=== PATIENT | female | born 1985 | race Caucasian/White ===

== ENCOUNTER 2019-02-06 06:14 | Inpatient (IN) | payer OTHER ==
[~2019-02-06] VITALS: Ht 157.5 cm; Wt 63.0 kg
[2019-02-06 07:19] LABS: APPEARANCE,URINE Cloudy (CLEAR); BILIRUBIN,URINE Negative (NEGATIVE); COLOR,URINE Yellow (YELLOW); GLUCOSE, URINE (UA) Negative (NEGATIVE); KETONES,URINE Negative (NEGATIVE); LEUKOCYTE ESTERASE ,URINE Trace (NEGATIVE); NITRATE,URINE Negative (NEGATIVE); OCCULT BLOOD,URINE Negative (NEGATIVE); PROTEIN,URINE Negative (NEGATIVE); UROBILINOGEN,URINE 0.2 mg/dL (0.2-1.0)
[2019-02-06 07:22] VITALS: BP 112/68
[2019-02-06] MEDS ORDERED: PREN1TAB80 PO (07:22)
[2019-02-06] MEDS: LACTATED RINGERS 1000ML 1,000 ML IV PRN ×2 (07:36→16:21)
[2019-02-06 07:48] LABS: HEMATOCRIT 34.9 % (36-48); MEAN CORPUSCULAR HEMOGLOBIN 30.9 pg (27.0-33.0); MEAN CORPUSCULAR HGB CONC 33.9 g/dL (32.0-36.0); MEAN CORPUSCULAR VOLUME 91.1 fL (79-99); PLATELET COUNT (AUTO) 156 K/uL (130-400); RED BLOOD CELL COUNT(AUTO) 3.83 MIL/uL (4.00-5.50); RED CELL DISTRIBUTION WIDTH 13.8 % (11.0-15.5); WHITE BLOOD COUNT (AUTO) 5.7 K/uL (4.8-10.8)
[2019-02-06 07:48] LABS: BACTERIA,URINE Rare /HPF (None Seen); SQUAMOUS EPITHELIAL CELL,UR Few /HPF (0-2); WBC,URINE 0-1 /HPF (0-1)
[2019-02-06] MEDS: DINOPROSTONE 10 MG VAGINAL SUPP VG SCH (08:15)
[2019-02-06] MEDS ORDERED: ROPIVACAINE 0.2% 100ML VIAL 100 ML EP SCH (13:45)
[2019-02-06] MEDS ORDERED: LACTATED RINGERS 500 ML 500 ML IV PRN (13:45)
[2019-02-06] MEDS ORDERED: MEPERIDINE-PF 50 MG/ML SYG IVP PRN (13:45)
[2019-02-06] MEDS ORDERED: NALOXONE HCL 0.4 MG/1 ML ML IV PRN (13:45)
[2019-02-06] MEDS ORDERED: PROMETHAZINE HCL 25 MG/ML 1ML AMPULE IM PRN (13:45)
[2019-02-06] MEDS ORDERED: EPHEDRINE SULFATE 50 MG/ML AMPULE IVP PRN (13:45)
[2019-02-06] MEDS: LIDOCAINE 2%-EPI 1:200,000 20 ML VIAL IJ SCH (19:44)
[2019-02-06] MEDS ORDERED: OXYTOCIN-LR 20 UNITS/1000 ML 1,000 ML IV ONE (20:10)
[2019-02-06] MEDS: OXYTOCIN-LR 20 UNITS/1000 ML 1,000 ML IV SCH (21:45)
[2019-02-06] MEDS ORDERED: ACETAMINOPHEN 325 MG TAB PO PRN (22:15)
[2019-02-06] MEDS ORDERED: MEASLES/MUMPS/RUBELLA VACCINE, LIVE 0.5 ML/VIAL SQ PRN (22:15)
[2019-02-06] MEDS ORDERED: LANOLIN 30GM OINTMENT TP PRN (22:15)
[2019-02-06] MEDS ORDERED: DIPH,PERTUSS(ACELL),TET VAC/PF 0.5 ML VIAL IM PRN (22:15)
[2019-02-06] MEDS ORDERED: ACETAMINOPHEN-CODEINE 300/30MG TAB PO PRN (22:15)
[2019-02-06] MEDS ORDERED: BENZOCAINE/LANOLIN/ALOE VERA 60 ML AEROSOL TP PRN (22:15)
[2019-02-06] MEDS ORDERED: WITCH HAZEL 1 PAD TP PRN (22:15)
--- NOTE | 2019-02-07 00:15 | NUR ---
Explaining will continue to observe in L&D due to numbness to right leg; pt voices understanding & agrees to plan.
--- NOTE | 2019-02-07 01:05 | NUR ---
Pt continues with numbness to right leg; able to move left well, and right foot & ankle, states "i am starting to feel a bit more"; Explaining will continue to observe before transferring to room, pt voices understanding & agrees to plan. Addendum: 02/07/19 at 0107 by SHIELA NEAL RN RN Amended: Links added.
[2019-02-07] MEDS: OXYTOCIN-LR 20 UNITS/1000 ML 1,000 ML IV SCH (01:45)
[2019-02-07 02:15] VITALS: BP 116/72
[2019-02-07] MEDS: IBUPROFEN 600 MG TABLET PO PRN ×3 (03:13→16:34)
[2019-02-07 07:11] LABS: BASOPHILS % (AUTO) 0.4 % (0.0-5.0); HEMATOCRIT 35.1 % (36-48); LYMPHOCYTES % (AUTO) 17.6 % (21.0-51.0); MEAN CORPUSCULAR HGB CONC 34.1 g/dL (32.0-36.0); MEAN CORPUSCULAR VOLUME 90.9 fL (79-99); MONOCYTES % (AUTO) 6.3 % (3.0-13.0); NEUTROPHILS % (AUTO) 74.7 % (40.0-77.0); PLATELET COUNT (AUTO) 126 K/uL (130-400); RED BLOOD CELL COUNT(AUTO) 3.86 MIL/uL (4.00-5.50); RED CELL DISTRIBUTION WIDTH 13.3 % (11.0-15.5); WHITE BLOOD COUNT (AUTO) 9.8 K/uL (4.8-10.8)
[2019-02-07] MEDS: DINOPROSTONE 10 MG VAGINAL SUPP VG SCH (07:25)
[2019-02-07 07:28] VITALS: BP 113/69
[2019-02-07 07:45] LABS: HEPATITIS Bs ANTIGEN SCREEN P Negative (Negative)
[2019-02-07] MEDS: DOCUSATE SODIUM 100 MG CAP PO SCH ×2 (08:46→20:55)
[2019-02-07 11:49] VITALS: BP 96/54
[2019-02-07] MEDS: LIDOCAINE 2%-EPI 1:200,000 20 ML VIAL IJ SCH (13:45)
[2019-02-07 16:30] VITALS: BP 98/62
--- NOTE | 2019-02-07 19:12 | NUR ---
INSTRUCTIONS DISCHARGE INSTRUCTIONS AND PRESCRIPTION PROVIDED TO PT; READ ALL INSTRUCTIONS TO PATIENT, ANSWERED ALL QUESTIONS AND CONCERNS; PT VERBALIZED AND SIGNED UNDERSTANDING
[2019-02-07 19:45] VITALS: BP 99/60
--- NOTE | 2019-02-07 22:00 | NUR ---
STATUS, PATIENT WAS GIVEN DISCHARGE INSTRUCTIONS FOR BY ZULEMA SANCHES AT THIS TIME Addendum: 02/07/19 at 2238 by MITCHEL SERRANO LVN Amended: Links added.
--- NOTE | 2019-02-07 22:00 | NUR ---
DISCHARGE DISCHARGED VIA W/C WITH IN CAR SEAT, DRIZZLING WEATHER AND PARENTS WANTED BABY IN CAR SEAT/ TAKEN TO CAR BY CIARA BRASWELL Addendum: 02/08/19 at 0011 by MITCHEL SERRANO LVN Amended: Links added.
== END 2019-02-07 22:50 | disposition home or self-care (01) | DRG 807 ==
LOC: EDSTATUS 06:14 → LDH 06:15 → WSH 02-07 02:15
PROVIDERS: ADMIT Obstetrics & Gynecology; ATTEND Obstetrics & Gynecology
PROC: 10E0XZZ Delivery of Products of Conception, External Approach (ICD-10-PCS; principal; 2019-02-06)
PROC: 0KQM0ZZ Repair Perineum Muscle, Open Approach (ICD-10-PCS; 2019-02-06)
PROC: 3E0R3BZ Introduction of Anesthetic Agent into Spinal Canal, Percutaneous Approach (ICD-10-PCS; 2019-02-06)
PROC: 00HU33Z Insertion of Infusion Device into Spinal Canal, Percutaneous Approach (ICD-10-PCS; 2019-02-06)
PROC: 3E0234Z Introduction of Serum, Toxoid and Vaccine into Muscle, Percutaneous Approach (ICD-10-PCS; 2019-02-06)
PROC: 3E0134Z Introduction of Serum, Toxoid and Vaccine into Subcutaneous Tissue, Percutaneous Approach (ICD-10-PCS; 2019-02-06)
DX: O70.1 Second degree perineal laceration during delivery (principal); Z37.0 Single live birth; Z3A.39 39 weeks gestation of pregnancy; Z23 Encounter for immunization
CPT/HCPCS: 36415; 81001; 85025; 85027; 86592; 86850; 86900; 86901; 87340; 90715; A4314; G0378; J2175; J2550; J2590; J2795; J3490; J7120